=== PATIENT | female | born 1940 | race Caucasian/White ===

== ENCOUNTER 2016-12-01 08:24 | Day surgery (SDC) | payer OTHER ==
--- NOTE | ~2016-12-01 | EGD ---
EGD REPORT [facility] [address] 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 Estimated blood loss: None. Procedure: Pre-Anesthesia Assessment: - ASA Grade Assessment: III - A patient with severe systemic disease. After obtaining informed consent, the endoscope was passed under direct vision. Throughout the procedure, the patient's blood pressure, pulse, and oxygen saturations were monitored continuously. The Endoscope was introduced through the mouth, and advanced to the second part of duodenum. The GIF [id number] was introduced through the mouth, and advanced to the second part of duodenum. Findings: Endoscopic Finding : The examined esophagus was endoscopically normal. A 7 cm hiatus hernia was present. Patchy mild inflammation characterized by erythema was found in the entire examined stomach. Biopsies were taken with a cold forceps for histology. Verification of patient identification for the specimen was done. Estimated blood loss was minimal. The cardia and gastric fundus were normal on retroflexion. The examined duodenum was endoscopically normal. Endosonographic Finding : A lesion suggestive of a cyst was identified in the pancreatic head. The lesion measured 9 mm by 8 mm in maximal cross-sectional diameter. There was a single compartment. An anechoic lesion suggestive of a cyst was identified in the pancreatic tail. The lesion measured 15 mm by 6 mm in maximal cross-sectional diameter. There were a few compartments There was no associated mass. Pancreatic parenchymal abnormalities were noted in the entire pancreas. These consisted of numberous other subcentimeter cysts. The pancreatic duct had a normal endosonographic appearance in the entire pancreas. The pancreatic duct measured up to 2 mm in diameter. EGD REPORT [place] [id number] [facility] [place]. [address] NAME: KATINA MEHTA : [birth year] STATUS : REG [facility] PAT#: [id number] AGE: 75 ADM/REG DATE : 12/01/16 MR#: [id number] REPORT SERV DATE: 12/01/16 DICTATED BY: BELEM ARNOLD DATE: 12/01/16 REPORT STATUS : Draft TRANSCRIBED BY: [email or web address] DATE: 12/01/16 Impression: - Normal esophagus. - Hiatus hernia. - Gastritis. Biopsied. - Normal examined duodenum. - A 9 mm by 8 mm cystic lesion was seen in the pancreatic head. - A 15 mm by 6 mm cystic lesion was seen in the pancreatic tail. - Pancreatic parenchymal abnormalities consisting of cysts were noted in the entire pancreas. - The pancreatic duct had a normal endosonographic appearance in the entire pancreas. The pancreatic duct measured up to 2 mm in diameter. Recommendation: - Return to previous diet. - Continue present medications. - Await path results. - Would plan follow up MRI in one year Procedure Code(s): --- Professional --- 99801, Esophagogastroduodenoscopy, flexible, transoral; with endoscopic ultrasound examination limited to the esophagus, stomach or duodenum, and adjacent structures Diagnosis Code(s): --- Professional --- K44.9, Diaphragmatic hernia without obstruction or gangrene K29.70, Gastritis, unspecified, without bleeding K86.2, Cyst of pancreas CPT copyright 2013 [employer]. All rights reserved. The codes documented in this report are preliminary and upon drafter marine review may be revised to meet current compliance requirements. BELEM ARNOLD, 12/01/2016 10:00 AM Number of Addenda: 0 Note Initiated On: 12/01/2016 9:25 AM Scope Withdrawal Time 0 hours 0 minutes 0 seconds [address] [place] [address]
[~2016-12-01 08:24] MED LIST: ACET500CAP PO; AMB10 PO; ASAB PO; CENTRUM PO; CENTRUM TAB1 TAB PO; ESTRATESHS PO; ESTRATEST PO; FISH OIL1200 MG PO; L20 PO; LEVOTHROID112 MCG; LEVOTHYROXIN100 MCG PO; LEVOTHYROXIN112 MCG PO; LEVOTHYROXIN125 MCG PO; LIOR10 PO; LOP25 PO; LUVOX CR150 MG PO; LYRICA150 MG PO; MIRALAX POWDER1 PKT PO; NEXIUM20 M1 PO; NORCO1 TA1 PO; NORV5 PO; OS500+D PO; PRILO PO; TOPXL25 PO; ULTRAM50 PO; VITAMIN D1000 UNI1 PO; VITC500 PO; X25 PO; X5 PO; ZANTAC150 MG PO
== END 2016-12-01 23:59 | disposition home or self-care (01) ==
LOC: DMU 08:24
PROVIDERS: Internal Medicine Gastroenterology
PROC: 0DJ08ZZ Inspection of Upper Intestinal Tract, Via Natural or Artificial Opening Endoscopic (ICD-10-PCS; principal; 2016-12-01 10:30)
DX: K29.50 Unspecified chronic gastritis without bleeding (principal); K44.9 Diaphragmatic hernia without obstruction or gangrene; K86.2 Cyst of pancreas; I10 Essential (primary) hypertension; M19.90 Unspecified osteoarthritis, unspecified site; K21.9 Gastro-esophageal reflux disease without esophagitis; F41.0 Panic disorder [episodic paroxysmal anxiety]; M79.7 Fibromyalgia; Z90.89 Acquired absence of other organs; Z90.49 Acquired absence of other specified parts of digestive tract; Z90.710 Acquired absence of both cervix and uterus; Z98.41 Cataract extraction status, right eye; Z98.42 Cataract extraction status, left eye
CPT/HCPCS: 88305; 88342; C1725; J1956